=== PATIENT | male | born 1965 | race Caucasian/White ===

== ENCOUNTER 2016-05-14 10:00 | Outpatient (CLI) | payer BC | END 2017-05-14 | LOC: M ONCR 10:00 | DX: C61 Malignant neoplasm of prostate (principal) | CPT/HCPCS: 77334; G0463 ==

== ENCOUNTER → 2016-12-06 | Outpatient (CLI) | payer BC ==
--- NOTE | 2016-12-06 14:51 | REP ---
WHOLE BODY RADIONUCLIDE BONE SCAN: HISTORY: Malignant neoplasm of the prostate. No comparison study. TECHNIQUE: 21.7 mCi technetium 99m MDP is injected and standard whole body bone scan imaging is acquired. SCINTIGRAPHIC FINDINGS: There is a normal distribution of skeletal tracer with uptake in bilateral kidneys and in the urinary bladder. There is some mild degenerative facet uptake in the lower cervical spine. Arthritic uptake is seen in the medial compartment of each knee and in each wrist and each shoulder. There is a mild dextroconvex thoracic curvature. There is no evidence to suggest skeletal metastatic disease. IMPRESSION: No evidence of bony metastatic disease seen. Signed by Gerry Valero MD 12/07/2016 10:02 A
== END ==
LOC: M RAD 08:04
PROVIDERS: ATTEND Specialist
DX: C61 Malignant neoplasm of prostate (principal)
CPT/HCPCS: 78306; A9503

== ENCOUNTER 2017-03-04 10:34 | Inpatient (IN) | payer BC ==
[~2017-03-04] VITALS: Ht 177.8 cm; Wt 97.2 kg
[2017-03-04] MEDS ORDERED: LIDOCAINE 1% MDV 20ML VIAL SQ PRN (10:45)
[2017-03-04] MEDS ORDERED: LR 1,000 ML IV ONE (11:00)
[2017-03-04] MEDS ORDERED: HEPARIN SOD (PORCINE) 5000 UNITS/ML VIAL SQ ONE (11:00)
[2017-03-04] MEDS ORDERED: BUPIVACAINE HCL 0.25% 30 ML VIAL As Ordered ONE (15:57)
[2017-03-04] MEDS ORDERED: LIDOCAINE 1% SDV INJ 30 ML VIAL As Ordered ONE (15:57)
[2017-03-04] MEDS ORDERED: PROPOFOL 500 MG/50 ML VIAL As Ordered ONE (16:48)
[2017-03-04] MEDS ORDERED: MIDAZOLAM INJ 2 MG/2 ML VIAL (J2250) As Ordered ONE (16:48)
[2017-03-04] MEDS ORDERED: fentaNYL 250 MCG/5 ML INJECTION (J3010) As Ordered ONE (16:48)
[2017-03-04] MEDS ORDERED: GLYCOPYRROLATE INJ 0.2 MG/ML 2 ML VIAL As Ordered ONE ×3 (17:02→20:30)
[2017-03-04] MEDS ORDERED: NEOSTIGMINE 10 MG/10 ML VIAL (J2710) As Ordered ONE ×2 (17:02→17:45)
[2017-03-04] MEDS ORDERED: VECURONIUM BROMIDE 10 MG VIAL As Ordered ONE ×2 (17:02→18:29)
[2017-03-04] MEDS ORDERED: dexameTHASONE 4 MG/ML 1ML VIAL (J1100) As Ordered ONE (17:03)
[2017-03-04] MEDS ORDERED: METOCLOPRAMIDE INJ 10MG/2ML VIAL (J2765) As Ordered ONE (17:04)
[2017-03-04] MEDS ORDERED: ATROPINE SULF 0.4 MG/ML 1ML VIAL (J0461) As Ordered ONE (17:17)
[2017-03-04] MEDS ORDERED: fentaNYL 100 MCG/2 ML INJECTION (J3010) As Ordered ONE (17:51)
[2017-03-04] MEDS ORDERED: HYDROmorphone HCL 2 MG/ML 1ML VIAL (J1170) As Ordered ONE (18:58)
[2017-03-04] MEDS ORDERED: DESFLURANE 240 ML INHALANT As Ordered ONE (20:06)
[2017-03-04] MEDS ORDERED: ONDANSETRON 4MG/2ML VIAL (J2405) As Ordered ONE (20:31)
[2017-03-04] MEDS ORDERED: LIDOCAINE 2% INJ 100 MG/5 ML SDV (FOR ANES.) As Ordered ONE (20:37)
[2017-03-04] MEDS ORDERED: PROPOFOL 200 MG/20 ML VIAL As Ordered ONE (20:37)
[2017-03-04] MEDS ORDERED: SUGAMMADEX SODIUM 500 MG/5 ML VIAL (BRIDION) As Ordered ONE (21:15)
[2017-03-04] MEDS ORDERED: PERCOCET 5MG/325MG TAB PO PRN ×2 (21:30→22:00)
[2017-03-04] MEDS ORDERED: MORPHINE 2 MG/ML 1ML SYRINGE IV PRN (21:30)
[2017-03-04] MEDS ORDERED: ONDANSETRON 4MG/2ML VIAL (J2405) IV PRN ×2 (21:30→22:00)
[2017-03-04] MEDS ORDERED: ACETAMINOPHEN TAB 650MG DOSE (2X325MG) PO PRN (21:30)
[2017-03-04 21:43] LABS: MEAN CORPUSCULAR HGB CONC 35.6 g/dl (32.0-36.5); MEAN CORPUSCULAR VOLUME 87.1 fl (80.0-96.0); PLATELET COUNT, AUTOMATED 168 10^3/uL (150-450); RED CELL DISTRIBUTION WIDTH 12.1 % (11.5-14.5); WHITE BLOOD COUNT 14.5 10^3/uL (4.0-10.0)
--- NOTE | 2017-03-04 21:57 | ROOPDOC ---
[facility] Report Of Operation Report of Operation DATE OF PROCEDURE: 03/04/17 PPREPROCEDURE DIAGNOSIS: Prostate cancer. POSTPROCEDURE DIAGNOSIS: Prostate cancer. PROCEDURE: Robotic-assisted laparoscopic radical prostatectomy. SURGEON: Jasen Nelson MD C2 TACTICAL ANALYSIS TECHNICIAN: None ANESTHESIA: General. OPERATIVE INDICATIONS: This is a 52-year-old male who was diagnosed with clinical stage T1c [place] 3+3 prostate cancer. After a discussion of the different options for treatment, he elected to undergo the above listed procedure. DESCRIPTION OF PROCEDURE: The patient was brought to the operating room where general anesthesia was induced. Prophylactic antibiotics were infused. He was then placed in the dorsal lithotomy position, and prepped and draped in the usual sterile fashion. Next, a Garcia catheter was inserted into the bladder, and the balloon was filled with 10 mL of sterile water. We then made a midline incision above the umbilicus for a 12 mm port. A Veress needle was utilized to achieve pneumoperitoneum. Next, a 12 mm port was inserted through the incision and subsequently the camera was inserted. There were no injuries from the Veress needle or initial trocar placement. The remaining ports were placed in the usual fashion under direct vision in a W configuration. There were three 8 mm robotic ports, as well as another 12 mm district administrative assistant port. Once all the ports were placed, the robot was docked. After the robot was docked, we then proceeded to release any adhesions to the sigmoid colon and the abdominal wall. Once that was done, the bladder was dropped and the fat overlying the prostate was cleared using electrocautery. The superficial dorsal vein was controlled with electrocautery. The endopelvic fascia was opened on both sides and the dorsal venous complex was cleared. Next, a #0 Vicryl [id number] stitch was placed around the dorsal venous complex. Once that was done, the bladder was opened. We then began dissecting the bladder neck away from the prostate. I continued to dissect the bladder away from the prostate and then the prostate was lifted up. Both vasa differentia were identified in the midline. They were both carefully dissected and then ligated with Weck clips and then transected. Both seminal vesicles were then also dissected until the entire seminal vesicle on each side was lifted up. At this point, bilateral prostatic pedicles were carefully ligated using a Harmonic scalpel. Of note, I performed a nerve-sparing procedure on the left side only because all of the patient's positive cores on his preop biopsy were on the right. After dissecting the neurovascular bundle off the left side of the prostate, bilateral pedicles were carried towards the apex. After taking care of the pedicles and mobilizing the rectum off the prostate below, the prostate was only connected by the urethra. At this point, the dorsal vein was transected with electrocautery. The urethra was then opened and the catheter was withdrawn and the posterior urethra was transected, thus freeing the prostate. At this point, we checked for hemostasis and it did appear very good. Once hemostasis was confirmed, I then moved on to the vesicourethral anastomosis. This was performed with a Quill stitch in a running fashion. Once this was done, the final #20-Faroese Garcia catheter was placed. Once the final Garcia was placed, the balloon was filled with 15 mL of sterile water. Upon completion of the vesicourethral anastomosis, it was tested by filling the bladder with 120 mL of sterile water. There anastomosis appeared to be watertight. At this point, the prostate and seminal vesicles were placed in an Endo Catch bag for future retrieval. The robot was then undocked. A Mahsa fascial closure device was utilized to place a #0 Vicryl suture through the fascia of the 12 mm district administrative assistant port. At this point, a Jules- Melara (JOSEY) drain was brought in through the left robotic port skin site and the drain was positioned anterior to the bladder. The drain was secured to the skin with #3-0 Ethilon suture. Next, all the remaining ports were removed and there did not appear to be any bleeding from any of the port sites. The prostate was then extracted from the 12 mm camera port site after the skin and fascia were extended. The fascia in this area was then closed with a running #0 Vicryl stitch. The previously placed #0 Vicryl free tie through the district administrative assistant port site was then tied down and all incisions were irrigated. Lastly, all of the incisions were closed with running subcuticular #4-0 Monocryl sutures. Local anesthesia was applied. Dermabond was then applied to the incisions. This marked the conclusion of the procedure. The patient was then taken out of the dorsal lithotomy position, awakened from anesthesia and transported to the recovery room in stable condition. ESTIMATED BLOOD LOSS: 300 mL. COMPLICATIONS: None. SPECIMENS: Prostate. PLAN: The patient will be admitted to the hospital postoperatively, and he will likely be discharged home within the next 1-2 days. His catheter will be kept in place for at least 7 days. JASEN NELSON MD Mar 04, 2017 21:57
[2017-03-04] MEDS ORDERED: LR 1,000 ML IV SCH (22:00)
[2017-03-04] MEDS ORDERED: fentaNYL 100 MCG/2 ML INJECTION (J3010) IV PRN (22:00)
[2017-03-04 22:07] LABS: ANION GAP 7 MEQ/L (8-16); BLOOD UREA NITROGEN 24 MG/DL (7-18); CALCIUM LEVEL 7.8 MG/DL (8.5-10.1); CARBON DIOXIDE LEVEL 26 MEQ/L (21-32); CHLORIDE LEVEL 106 MEQ/L (98-107); CREATININE FOR GFR 1.03 MG/DL (0.70-1.30); GLOMERULAR FILTRATION RATE > 60.0 (>56); GLUCOSE, FASTING 115 MG/DL (70-105); POTASSIUM SERUM 4.6 MEQ/L (3.5-5.1); SODIUM LEVEL 139 MEQ/L (136-145)
[2017-03-04 22:55] VITALS: BP 108/59
[2017-03-04 23:25] VITALS: BP 102/61
[2017-03-05 00:25] VITALS: BP 103/61
[2017-03-05] MEDS: NS 1,000 ML IV SCH ×2 (00:28→06:26)
[2017-03-05] MEDS: CEFAZOLIN SOD 1 GM in APPROPRIATE DILUENT 1 EA IV SCH ×2 (00:29→08:39)
[2017-03-05 01:25] VITALS: BP 101/63
[2017-03-05 02:25] VITALS: BP 125/65
[2017-03-05 03:25] VITALS: BP 115/65
[2017-03-05] MEDS: HEPARIN SOD (PORCINE) 5000 UNITS/ML VIAL SC SCH ×2 (06:26→14:00)
[2017-03-05 07:54] LABS: MEAN CORPUSCULAR HEMOGLOBIN 30.9 pg (27.0-33.0); MEAN CORPUSCULAR HGB CONC 35.5 g/dl (32.0-36.5); PLATELET COUNT, AUTOMATED 150 10^3/uL (150-450); RED CELL DISTRIBUTION WIDTH 12.2 % (11.5-14.5); WHITE BLOOD COUNT 10.7 10^3/uL (4.0-10.0)
[2017-03-05 08:17] LABS: ANION GAP 10 MEQ/L (8-16); BLOOD UREA NITROGEN 24 MG/DL (7-18); CALCIUM LEVEL 7.8 MG/DL (8.5-10.1); CARBON DIOXIDE LEVEL 24 MEQ/L (21-32); CHLORIDE LEVEL 106 MEQ/L (98-107); CREATININE FOR GFR 0.85 MG/DL (0.70-1.30); GLOMERULAR FILTRATION RATE > 60.0 (>56); GLUCOSE, FASTING 128 MG/DL (70-105); POTASSIUM SERUM 4.5 MEQ/L (3.5-5.1); SODIUM LEVEL 140 MEQ/L (136-145)
[2017-03-05] MEDS ORDERED: DOCUSATE SODIUM 100 MG CAP PO SCH (09:00)
--- NOTE | 2017-03-05 09:00 | IPNPDOC ---
Assessment/Plan Date Seen The patient was seen on 03/05/17. Patient Summary This is a 52 y/o M POD1 s/p RALP. He is doing well this morning. Pain is well controlled. Hb stable. UOP has been good and hematuria is clearing. Plan/VTE VTE Prophylaxis Ordered?: Yes VTE Exclusion Mechanical Proph: N/A:VTE Prophy Ordered VTE Exclusion Pharmacological: N/A:VTE Prophy Ordered Plan/Urinary Catheter Urinary Catheter: Other Catheter: (catheter will need to stay in place for at least 7 days for healing if vesicourethral anastomosis) Plan - d/c IVF - encourage PO hydration - percocet prn pain - morphine for breakthrough pain - strict I/Os - SCDs, SQH - ambulate - advance diet as tolerated - likely discharge home later today (will pull JOSEY prior to discharge) Subjective Review oF Systems Chief Complaint The patient is a 52-year-old male admitted with a reason for visit of Prostate Cancer. Events since Last Encounter No acute events o/n. Good pain control. No n/v. No f/c/ns. Objective Physical Examination General Exam: Alert, Cooperative, No Acute Distress ABDOMEN EXAM: Soft, Tenderness (mildly tender), Other (incisions clean/dry/ intact; JOSEY w/ serosanguinous output) Skin Exam: Nl turgor and temperature Psych Exam: Mental status NL, Mood NL Other physical findings catheter in place, w/ clear urine in tubing Vital Signs/I&O Vital Signs Date Time Temp Pulse Resp B/P (MAP) Pulse Ox O2 Delivery O2 Flow Rate FiO2 03/05/17 08:42 18 Nasal Cannula 2.0 03/05/17 06:51 93 03/05/17 03:25 98.3 88 115/65 (82) I&O- Last 24 Hours up to 6 AM 03/06/17 06:00 Intake Total 1125 ml Balance 1125 ml Laboratory Data Labs 24H Laboratory Tests 2 03/04/17 21:34: Nucleated Red Blood Cells % (auto) 0.0, Anion Gap 7L, Glomerular Filtration Rate > 60.0, Blood Urea Nitrogen 24H, Creatinine 1.03, Sodium Level 139, Potassium Level 4.6, Chloride Level 106, Carbon Dioxide Level 26, Calcium Level 7.8L 03/05/17 07:46: Nucleated Red Blood Cells % (auto) 0.0, Anion Gap 10, Glomerular Filtration Rate > 60.0, Blood Urea Nitrogen 24H, Creatinine 0.85, Sodium Level 140, Potassium Level 4.5, Chloride Level 106, Carbon Dioxide Level 24, Calcium Level 7.8L CBC/BMP Laboratory Tests 03/04/17 21:34 Red Blood Count 5.10, Mean Corpuscular Volume 87.1, Mean Corpuscular Hemoglobin 31.0, Mean Corpuscular Hemoglobin Concent 35.6, Red Cell Distribution Width 12.1 , Calcium Level 7.8 L 03/05/17 07:46 Red Blood Count 4.76, Mean Corpuscular Volume 87.0, Mean Corpuscular Hemoglobin 30.9, Mean Corpuscular Hemoglobin Concent 35.5, Red Cell Distribution Width 12.2 , Calcium Level 7.8 L JASEN NELSON MD Mar 05, 2017 08:59
[2017-03-05] MEDS ORDERED: PERCOCET 5MG/325MG TAB PO PRN ×2 (09:15)
[2017-03-05] MEDS ORDERED: MORPHINE 2 MG/ML 1ML SYRINGE IV PRN (09:15)
[2017-03-05 14:00] VITALS: BP 101/55
[2017-03-05] MEDS ORDERED: OXYC1TAB23 PO (15:56)
[2017-03-05] MEDS ORDERED: COLA100C5 PO (15:56)
[2017-03-05] MEDS ORDERED: CIPR-249 PO (15:56)
--- NOTE | 2017-03-06 13:15 | DSES ---
DATE OF ADMISSION: 03/04/2017 DATE OF DISCHARGE: 03/05/2017 ADMISSION DIAGNOSIS: Prostate cancer. DISCHARGE DIAGNOSIS: Prostate cancer. ADMITTING PHYSICIAN: Dr. Dillon Win DISCHARGE PHYSICIAN: Dr. Dillon Win PROCEDURE PERFORMED: Robotic assisted laparoscopic radical prostatectomy. HISTORY OF PRESENT ILLNESS: This is a 52-year-old male who has a recent diagnosis of prostate cancer. Options for management were discussed and he elected to undergo the above listed procedure. He was admitted to the hospital postoperatively. HOSPITALIZATION COURSE: The patient was admitted to the hospital after undergoing the above listed procedure. His postoperative course was unremarkable. By postoperative day one, his pain was well controlled with oral pain medications. All of his blood work was within normal limits. He was tolerating a regular diet and he ambulated without difficulty. His Jules-Melara drain did not put out large amounts during his stay and therefore that was removed on postoperative day. He was discharged home on postoperative day one with his catheter in place with a plan for him to followup in the clinic in approximately one week for catheter removal and to discuss pathology results.
== END 2017-03-05 17:00 | disposition home or self-care (01) | DRG 484 ==
LOC: M OR 10:34 → M MS4PR 22:50
PROVIDERS: ADMIT Urology; ATTEND Urology
PROC: 8E0W4CZ Robotic Assisted Procedure of Trunk Region, Percutaneous Endoscopic Approach (ICD-10-PCS; 2017-03-04)
PROC: 0VT04ZZ Resection of Prostate, Percutaneous Endoscopic Approach (ICD-10-PCS; principal; 2017-03-04 13:35)
DX: C61 Malignant neoplasm of prostate (principal)

== ENCOUNTER 2017-03-11 19:08 | Emergency (ER) | payer BC ==
[~2017-03-11] VITALS: Ht 177.8 cm; Wt 92.7 kg
[~2017-03-11 19:08] MED LIST: CIPR-249 PO; COLA100C5 PO; OXYC1TAB23 PO
[2017-03-11] MEDS ORDERED: CIPR-249 PO (20:54)
[2017-03-11 21:15] VITALS: BP 129/71
== END 2017-03-11 21:20 | disposition home or self-care (01) ==
LOC: M ED 19:08
DX: R33.9 Retention of urine, unspecified (principal); Z79.899 Other long term (current) drug therapy; Z90.79 Acquired absence of other genital organ(s)

== ENCOUNTER 2017-05-16 02:00 | Outpatient (RCR) | payer BC | END 2017-06-05 | LOC: M ONCR 02:00 | DX: C61 Malignant neoplasm of prostate (principal) | CPT/HCPCS: 77300 ==

== ENCOUNTER → 2017-05-16 | Outpatient (CLI) | payer BC ==
[2017-05-16 14:59] LABS: HEMATOCRIT 44.3 % (42.0-52.0); HEMOGLOBIN 15.9 g/dl (14.0-18.0); MEAN CORPUSCULAR HEMOGLOBIN 30.1 pg (27.0-33.0); MEAN CORPUSCULAR HGB CONC 35.9 g/dl (32.0-36.5); MEAN CORPUSCULAR VOLUME 83.9 fl (80.0-96.0); PLATELET COUNT, AUTOMATED 114 10^3/uL (150-450); RED BLOOD COUNT 5.28 10^6/uL (4.30-6.10); RED CELL DISTRIBUTION WIDTH 11.8 % (11.5-14.5); WHITE BLOOD COUNT 5.4 10^3/uL (4.0-10.0)
[2017-05-16 15:24] LABS: PROSTATIC SPECIFIC AG MONITOR 6.05 NG/ML (< 4.0)
== END ==
LOC: M RAD 13:58
DX: C61 Malignant neoplasm of prostate (principal)
CPT/HCPCS: 84153

== ENCOUNTER 2017-06-06 10:36 | Outpatient (RCR) | payer BC | END 2017-07-06 | LOC: M ONCR 10:36 | DX: C61 Malignant neoplasm of prostate (principal) | CPT/HCPCS: 77300 ==

== ENCOUNTER 2017-07-08 09:46 | Outpatient (RCR) | payer BC | END 2017-08-05 | LOC: M ONCR 09:46 | DX: C61 Malignant neoplasm of prostate (principal) | CPT/HCPCS: 77336 ==

== ENCOUNTER 2022-09-06 20:31 | Emergency (ER) | payer BC, SELFPAY ==
[~2022-09-06] VITALS: Ht 177.8 cm; Wt 101.7 kg
[2022-09-06 20:31] VITALS: BP 140/86
[2022-09-07] MEDS ORDERED: CEPHALEXIN 500 MG CAP PO ONE (00:55)
[2022-09-07] MEDS ORDERED: BOOSTRIX VACCINE (TETANUS/DIPHTH/ACEL. PERTUSSIS) 0.5ML SYR IM ONE (00:55)
[2022-09-07] MEDS ORDERED: CEPH500C PO (01:00)
== END 2022-09-07 01:24 | disposition home or self-care (01) ==
LOC: M ED 20:31
DX: S61.442A Puncture wound with foreign body of left hand, initial encounter (principal); W45.8XXA Other foreign body or object entering through skin, initial encounter; Y92.89 Other specified places as the place of occurrence of the external cause; Y93.89 Activity, other specified; Y99.8 Other external cause status; Z85.46 Personal history of malignant neoplasm of prostate

== ENCOUNTER 2024-01-02 09:51 | Emergency (ER) | payer BC ==
[~2024-01-02] VITALS: Ht 177.8 cm; Wt 101.4 kg
[~2024-01-02 09:51] MED LIST changes: +CEPH500C PO
[2024-01-02 12:51] VITALS: BP 137/94; TEMP 97.8; O2SAT 98
== END 2024-01-02 13:04 | disposition home or self-care (01) ==
LOC: M ED 09:51
DX: S01.01XA Laceration without foreign body of scalp, initial encounter (principal); Y92.019 Unspecified place in single-family (private) house as the place of occurrence of the external cause; Y93.9 Activity, unspecified; Y99.9 Unspecified external cause status; W22.8XXA Striking against or struck by other objects, initial encounter